=== PATIENT | female | born 1995 | race Caucasian/White ===

== ENCOUNTER → 2017-10-01 | Outpatient (CLI) | payer OTHER ==
[~2017-10-01] MED LIST: IOHEXOL 300 MG/ML 75 ML VIAL. IV ONE
--- NOTE | 2017-10-01 15:26 | RAD ---
EXAM: CT head without contrast. HISTORY: Right upper extremity weakness. TECHNIQUE: Computed tomography of the head was performed without intravenous contrast. COMPARISON: None. FINDINGS: There is no intracranial hemorrhage. Uriarte-white differentiation is preserved. The ventricles are normal in size and position. The visualized paranasal sinuses appear clear. The orbits are unremarkable. A left eyebrow piercing is noted. The temporal bones are unremarkable. The calvarium reveals no suspicious lesions. IMPRESSION: 1. No acute intracranial findings. *One or more of the following individualized dose reduction techniques were utilized for this examination: 1. Automated exposure control. 2. Adjustment of the mA and/or kV according to patient size. 3. Use of iterative reconstruction technique.
--- NOTE | 2017-10-01 16:44 | RAD ---
EXAM: Right upper extremity venous Doppler. HISTORY: Right upper renal mass and weakness. History of pulmonary embolism COMPARISON: None. FINDINGS: Grayscale and Doppler analysis of the right upper extremity deep venous system was performed with graded compression and augmentation. The internal jugular, subclavian, axillary, brachial, basilic, cephalic, radial and ulnar veins were assessed. There is no evidence of deep venous thrombosis. IMPRESSION: 1. No evidence of deep venous thrombosis.
--- NOTE | 2017-10-01 17:28 | RAD ---
CTA of the chest with and without contrast Clinical indications: Elevated d-dimer. History of pulmonary embolism. Right arm numbness and weakness. Comparison: No previous chest CT available. Technique: Noncontrast axial localizer was performed. After IV infusion of 75 cc of Omnipaque 300, helical CT scanning of the chest was performed using the CT pulmonary embolism protocol. A coronal MIP reconstruction was generated. PQRS Compliance Statement: One or more of the following individualized dose reduction techniques were utilized for this examination: 1. Automated exposure control 2. Adjustment of the mA and/or kV according to patient size 3. Use of iterative reconstruction technique Findings: No pulmonary embolism is evident. No focal aneurysmal dilatation or dissection of the thoracic aorta is seen. The heart size is normal and no pericardial effusion is seen. No enlarged thoracic lymphadenopathy is evident. No lung infiltrate or lung mass is seen. No pleural effusion or pneumothorax is evident. The proximal bronchial tree is patent. No osteolytic process is seen. No adrenal mass is evident. IMPRESSION: No pulmonary embolism. No acute lung infiltrate.
== END | disposition home or self-care (01) ==
LOC: CT 15:08
PROVIDERS: ATTEND Physician Assistant
DX: I26.99 Other pulmonary embolism without acute cor pulmonale (principal); M79.601 Pain in right arm; R20.2 Paresthesia of skin; R53.1 Weakness; Z86.711 Personal history of pulmonary embolism
CPT/HCPCS: 70450; 71275; 93971; Q9967

== ENCOUNTER 2019-06-05 17:01 | Emergency (ER) | payer OTHER ==
[~2019-06-05] VITALS: Ht 167.6 cm; Wt 94.4 kg
--- NOTE | 2019-06-05 17:25 | ED.ADGEN ---
Past History Past Medical History: Asthma, Other Additional Past Medical Histor: nerve pain from carpal tunnel syndrome; chronic back pain Past Surgical History: No Surgical History Alcohol Use: None Drug Use: None Adult General Chief Complaint Chief Complaint Back pain HPI HPI Patient is a 24-year-old female who presents with diffuse lower back pain 2 days. Patient reports history of chronic low back pain and states she was stretching or bending over yesterday when she felt a sharp pulling pain radiating to her left leg. Patient has taken ibuprofen with limited relief. Denies extremity weakness loss of sensation. No loss of bowel or bladder function. No other acute symptoms or complaints. [] Review of Systems Review of Systems Review symptoms as per history of present illness. All other review symptoms are negative [] All other systems were reviewed and found to be within normal limits, except as documented in this note. Allergies Allergies Allergies Coded Allergies Type Severity Reaction Last Updated Verified No Known Drug Allergies 06/05/19 No Physical Exam Physical Exam Constitutional: Well developed, well nourished, no acute distress, non-toxic appearance. [] HENT: Normocephalic, atraumatic, bilateral external ears normal, oropharynx moist, no oral exudates, nose normal. [] Eyes: PERRLA, EOMI, conjunctiva normal, no discharge. [] Neck: Normal range of motion, no tenderness, supple, no stridor. [] Psychologic: Affect normal, judgement normal, mood normal. [] Current Patient Data Vital Signs Vital Signs Date Time Temp Pulse Resp B/P (MAP) Pulse Ox O2 Delivery O2 Flow Rate FiO2 06/05/19 17:09 98.5 72 18 100 Room Air EKG EKG [] Radiology/Procedures Radiology/Procedures [] Course & Med Decision Making Course & Med Decision Making Pertinent Labs and Imaging studies reviewed. (See chart for details) [Musculoskeletal back pain without neurologic deficit. Recommendations are supportive care with PCP follow-up.] Final Impression Final Impression [#1 acute lumbago] Theresa Disclaimer Dragon Disclaimer This electronic medical record was generated, in whole or in part, using a voice recognition dictation system. JOSIAS CARIAS DO Jun 05, 2019 17:25
[2019-06-05] MEDS ORDERED: CYCL-331 PO (17:26)
[2019-06-05] MEDS ORDERED: HYDR-3165 PO (17:26)
[2019-06-05 17:32] VITALS: BP 119/78
== END 2019-06-05 17:33 | disposition home or self-care (01) ==
LOC: ER 17:01
DX: G89.29 Other chronic pain (principal); M54.5 Low back pain; J45.909 Unspecified asthma, uncomplicated
CPT/HCPCS: 99283

== ENCOUNTER → 2019-09-11 | Outpatient (CLI) | payer OTHER ==
[~2019-09-11] MED LIST changes: +CYCL-331 PO; +HYDR-3165 PO; -IOHEXOL 300 MG/ML 75 ML VIAL. IV ONE
--- NOTE | 2019-09-11 13:30 | RAD ---
EXAM: CT Abdomen and Pelvis without IV contrast CLINICAL HISTORY: Right-sided abdominal and flank pain. COMPARISON: none TECHNIQUE: Helical CT of the abdomen and pelvis was performed without the administration of IV contrast. Axial, coronal and sagittal reformatted images were generated. ---PQRS compliance statement - One or more of the following individualized dose reduction techniques were utilized for this study: 1. Automated exposure control 2. Adjustment of the mA and/or kV according to patient size 3. Use of iterative reconstruction technique--- FINDINGS: Lack of intravenous contrast limits evaluation of solid organs, vasculature, and lymph nodes. Lower chest: Lung bases are clear. Abdomen and pelvis: Liver and biliary system: Liver is top normal in size measuring 17.9 cm in length. Gallbladder is normal. No biliary ductal dilatation. Spleen: Unremarkable Pancreas: Unremarkable Adrenal glands: Unremarkable Kidneys: No renal tract calculus. No focal renal lesion. No hydronephrosis. No hydroureter. Lymph nodes/retroperitoneum: A few mildly prominent mesenteric and right lower quadrant/pericecal lymph nodes are seen. No abdominal or pelvic lymphadenopathy by size criteria. Vessels: Aorta is normal in caliber. Bowel/Peritoneal cavity: Moderate colonic stool content is seen. Appendix is normal. No abdominal or pelvic ascites. IUD is seen within the uterus. Abdominal wall: Small fat-containing periumbilical hernia is seen. Bladder: Bladder is unremarkable. Bones: Sclerotic focus left pubic symphysis. IMPRESSION: 1. No renal tract calculus. 2. IUD is seen within the uterus. 3. Appendix is normal. 4. A few mildly prominent right lower quadrant lymph nodes are seen, nonspecific but may be seen with mesenteric adenitis. However no lymphadenopathy by size criteria. Electronically signed by: Lenny Miles MD (09/11/2019 1:27 PM) [id number]
== END | disposition home or self-care (01) ==
LOC: CT 09:21
PROVIDERS: ATTEND Family Medicine
DX: K42.9 Umbilical hernia without obstruction or gangrene (principal); R85.0 Abnormal level of enzymes in specimens from digestive organs and abdominal cavity
CPT/HCPCS: 74176

== ENCOUNTER 2020-04-14 13:01 | Emergency (ER) | payer OTHER ==
[~2020-04-14] VITALS: Ht 167.6 cm; Wt 94.4 kg
[2020-04-14 13:05] VITALS: BP 119/78
--- NOTE | 2020-04-14 13:23 | PHYS DOC ---
Past History Past Medical History: Asthma, Other Additional Past Medical Histor: nerve pain from carpal tunnel syndrome; chronic back pain Past Surgical History: No Surgical History Alcohol Use: None Drug Use: None General Adult EDM: Chief Complaint: ABDOMINAL PAIN HPI: HPI: Patient is a 25-year-old female presents with 2 weeks of lower abdominal cramping stabbing abdominal pain. Pain is worse with palpation and movement. Pain is mild at rest and moderate movement and activity. Patient states she has seen a doctor and had an x-ray and her IUD is upside down. Patient denies any nausea vomiting fever dysuria but states that she has a little bit of blood when she wipes. Review of Systems: Review of Systems: Constitutional: Denies fever or chills Eyes: Denies change in visual acuity HENT: Denies nasal congestion or sore throat Respiratory: Denies cough or shortness of breath Cardiovascular: Denies chest pain or edema GI: Complains of abdominal pain but no, nausea, vomiting, bloody stools or diarrhea : Denies dysuria Musculoskeletal: Denies back pain or joint pain Integument: Denies rash Neurologic: Denies headache, focal weakness or sensory changes Endocrine: Denies polyuria or polydipsia Lymphatic: Denies swollen glands Psychiatric: Denies depression or anxiety Heart Score: Risk Factors: Risk Factors: DM, Current or recent (<one month) smoker, HTN, HLP, family history of CAD, obesity. Risk Scores: Score 0 - 3: 2.5% MACE over next 6 weeks - Discharge Home Score 4 - 6: 20.3% MACE over next 6 weeks - Admit for Clinical Observation Score 7 - 10: 72.7% MACE over next 6 weeks - Early Invasive Strategies Allergies: Allergies: Allergies Coded Allergies Type Severity Reaction Last Updated Verified No Known Drug Allergies 06/05/19 No Physical Exam: PE: Constitutional: Well developed, well nourished, no acute distress, non-toxic appearance. [] HENT: Normocephalic, atraumatic, bilateral external ears normal, no trismus, nose normal. [] Eyes: PERRLA, EOMI, conjunctiva normal, no discharge. [] Neck: Normal range of motion, no tenderness, supple, no stridor. [] Cardiovascular:Heart rate regular rhythm, peripheral pulses intact cap refill is brisk Lungs & Thorax: Bilateral breath sounds clear, no respiratory distress Abdomen: Soft with mild lower abdominal tenderness without guarding or rebound no pulsatile masses Skin: Warm, dry, no erythema, no rash. [] Back: No tenderness, no CVA tenderness. [] Extremities: No tenderness, no cyanosis, no clubbing, ROM intact, no edema. [] Neurologic: Alert and oriented X 3, normal motor function, normal sensory function, no focal deficits noted. [] Psychologic: Affect normal, judgement normal, mood normal. [] Current Patient Data: Labs: Laboratory Tests Test 04/14/20 14:20 04/14/20 14:42 Urine Collection Type Unknown Urine Color Yellow Urine Clarity Cloudy Urine pH 5.5 Urine Specific [place] 1.020 Urine Protein Neg Urine Glucose (UA) Neg mg/dL Urine Ketones (Stick) Neg mg/dL Urine Blood Trace Urine Nitrite Neg Urine Bilirubin Neg Urine Urobilinogen Dipstick 0.2 mg/dL Urine Leukocyte Esterase Small Urine RBC 3-5 /HPF Urine WBC 20-40 /HPF Urine Squamous Epithelial Cells Few /LPF Urine Bacteria Mod /HPF Urine Test Negative White Blood Count 6.5 x10^3/uL Red Blood Count 4.26 x10^6/uL Hemoglobin 13.7 g/dL Hematocrit 40.7 % Mean Corpuscular Volume 96 fL Mean Corpuscular Hemoglobin 32 pg Mean Corpuscular Hemoglobin Concent 34 g/dL Red Cell Distribution Width 13.7 % Platelet Count 223 x10^3/uL Neutrophils (%) (Auto) 44 % Lymphocytes (%) (Auto) 46 % Monocytes (%) (Auto) 6 % Eosinophils (%) (Auto) 3 % Basophils (%) (Auto) 1 % Neutrophils # (Auto) 2.8 x10^3uL Lymphocytes # (Auto) 3.0 x10^3/uL Monocytes # (Auto) 0.4 x10^3/uL Eosinophils # (Auto) 0.2 x10^3/uL Basophils # (Auto) 0.1 x10^3/uL Sodium Level 141 mmol/L Potassium Level 4.2 mmol/L Chloride Level 106 mmol/L Carbon Dioxide Level 27 mmol/L Anion Gap 8 Blood Urea Nitrogen 10 mg/dL Creatinine 1.0 mg/dL Estimated GFR (Cockcroft-Gault) 67.0 Glucose Level 93 mg/dL Calcium Level 9.0 mg/dL Current Medications Medications (Trade) Dose Ordered Sig/Katy Route PRN Reason Start Time Stop Time Status Last Admin Dose Admin Ketorolac Tromethamine (Toradol 15mg Vial) 15 mg 1X ONCE IVP 04/14/20 13:30 04/14/20 13:31 DC 04/14/20 14:41 EKG: EKG: [] Radiology/Procedures: Radiology/Procedures: [][place] [address] IMAGING REPORT Signed PATIENT: MYRANDA WEINERCCOUNT: [id number] : 1995 LOCATION: ER AGE: 25 SEX: F EXAM STATUS: REG ER ORD. PHYSICIAN: ZOHRA PALACIOS MD REASON: pelvic pain PROCEDURE: US PELVIS W/TV Pelvic ultrasound, transabdominal and endovaginal approach. INDICATION: Pelvic pain. Patient believes her IUDs out of place per technologist report. FINDINGS: Reported LMP is 04/10/2020. Uterus measures 8.5 x 5.3 x 4.3 cm. Endometrial stripe measures 4 mm. An IUD is present in the endometrial cavity in apparent satisfactory position. The right ovary measures 3.2 x 2.2 x 2.3 cm and demonstrates normal blood flow. The left ovary measures 3.1 x 1.7 x 2.1 cm and also demonstrates normal blood flow. No pelvic free fluid or adnexal mass. Cervix is unremarkable. IMPRESSION: Normal pelvic ultrasound with an IUD in place. Electronically signed by: Luis Mackey MD (04/14/2020 2:33 PM) [facility] [place] DICTATED AND SIGNED BY: LUIS MACKEY MD DATE: 04/14/20 1430 CC: ZOHRA PALACIOS MD; OLINDA AVNIA MD ~ Course & Med Decision Making: Course & Med Decision Making Pertinent Labs and Imaging studies reviewed. (See chart for details) [] I reviewed patient's x-ray which shows inverted T for her IUD. I informed the patient we do not remove IUDs in the emergency room. 25-year-old female presents with 2 weeks of lower abdominal pain. Work-up reveals a UTI. Patient will also be covered for gonorrhea and chlamydia with Rocephin and Zithromax. Patient will go home on antibiotics for UTI. Return precautions given ultrasound is reassuring for placement of the IUD. hCG checked and is negative Theresa Disclaimer: Theresa Disclaimer: This electronic medical record was generated, in whole or in part, using a voice recognition dictation system. Departure Departure: Impression: Primary Impression: Pelvic pain Additional Impression: UTI (urinary tract infection) Disposition: HOME/RESIDENCE PRIOR TO ADM Condition: STABLE Referrals: OLINDA AVINA MD (PCP) 2-3 DAYS Patient Instructions: Pelvic Pain, Female, Urinary Tract Infection Additional Instructions: EMERGENCY DEPARTMENT GENERAL DISCHARGE INSTRUCTIONS THANK YOU for coming to [facility] Emergency Department (ED) today and trusting us with your care. We trust that you had a positive experience in our Emergency Department. If you wish to speak to the department Management you can contact the supervisor porcelain department at . YOUR FOLLOW UP INSTRUCTIONS ARE FOLLOWS: Do you have a private doctor? If you do not have a private doctor, please ask for a resource list of physicians or clinics that may be able to assist you with follow up care. The Emergency Physician has interpreted your x-rays. The X-ray specialist will also review them. If there is a change in the findings you will be notified in 48 hours when at all possible. A lab test or lab culture may have been done, your results will be reviewed and you will be notified if you need a change in treatment. ADDITIONAL INSTRUCTIONS AND INFORMATION Your care today has been supervised by a physician who is specially trained in emergency care. Many problems require more than one evaluation for a complete diagnosis and treatment. We recommend that you schedule your follow up appointment as recommended to en sure complete treatment of your illness or injury. If you are unable to obtain follow up care and continue to have a problem, or if your condition worsens we recommend that you return to the ED. We are not able to safely determine your condition over the phone nor are we able to give sound medical advice over the phone. For these safety reasons, if you call for medical advice we will ask you to come to the ED for further evaluation If you have any questions regarding these discharge instructions please call the ED at . SAFETY INFORMATION In the interest of safety, wellness, and injury prevention; we encourage you to wear your seatbelt, if you smoke; quit smoking, and we encourage your family to use protective helmet for bicycling and other sporting events that present an increased risk for head injury. IF YOUR SYMPTOMS WORSEN OR NEW SYMPTOMS DEVELOP, OR YOU HAVE CONCERNS ABOUT YOUR CONDITION; OR IF YOUR CONDITION WORSENS WHILE YOU ARE WAITING FOR YOUR FOLLOW UP APPOINTMENT; EITHER CONTACT YOUR PRIMARY CARE DOCTOR, THE PHYSICIAN WHOSE NAME AND NUMBER YOU WERE GIVEN, OR RETURN TO THE ED IMMEDIATELY. Scripts Ibuprofen (Ibu) 600 Mg Tablet 1 TAB PO Q6-8HRS for pain, fever, inflammation for 6 Days, #24 TAB 0 Refills Prov: ZOHRA PALACIOS MD 04/14/20 Cephalexin (KEFLEX) 500 Mg Capsule 500 MG PO Q6HRS for UTI for 7 Days, #28 CAP Prov: ZOHRA PALACIOS MD 04/14/20 Justification of Admission: Justification of Admission: Justification of Admission Dx: N/A ZOHRA PALACIOS MD Apr 14, 2020 13:23
[2020-04-14] MEDS ORDERED: KETOROLAC 15 MG/ML VIAL. IVP ONE (13:30)
[2020-04-14 14:34] LABS: U PREG PATIENT NEGATIVE (NEG)
[2020-04-14 14:36] LABS: BILIRUBIN,URINE NEG (NEG); CLARITY,URINE CLOUDY; COLOR,URINE YELLOW; GLUCOSE,URINE NEG (NEG); NITRITE,URINE NEG (NEG); UROBILINOGEN,URINE 0.2 mg/dL (0.2 mg/dL); WBC,URINE 20-40 /HPF (0-4)
--- NOTE | 2020-04-14 14:36 | RAD ---
Pelvic ultrasound, transabdominal and endovaginal approach. INDICATION: Pelvic pain. Patient believes her IUDs out of place per technologist report. FINDINGS: Reported LMP is 04/10/2020. Uterus measures 8.5 x 5.3 x 4.3 cm. Endometrial stripe measures 4 mm. An IUD is present in the endometrial cavity in apparent satisfactory position. The right ovary measures 3.2 x 2.2 x 2.3 cm and demonstrates normal blood flow. The left ovary measures 3.1 x 1.7 x 2.1 cm and also demonstrates normal blood flow. No pelvic free fluid or adnexal mass. Cervix is unremarkable. IMPRESSION: Normal pelvic ultrasound with an IUD in place. Electronically signed by: Jessie Mackey MD (04/14/2020 2:33 PM) [facility] [place]
[2020-04-14 14:37] LABS: BACTERIA,URINE MOD /HPF (0-FEW); SQUAMOUS EPITHELIAL CELL,UR FEW /LPF
[2020-04-14 14:56] LABS: BASO # 0.1 x10^3/uL (0.0-0.2); BASO % 1 % (0-3); EOS # 0.2 x10^3/uL (0.0-0.7); EOS % 3 % (0-3); HEMATOCRIT 40.7 % (36.0-47.0); HEMOGLOBIN 13.7 g/dL (12.0-15.5); LYMPH % 46 % (24-48); MEAN CORPUSCULAR HEMOGLOBIN 32 pg (25-35); MEAN CORPUSCULAR HGB CONC 34 g/dL (31-37); MEAN CORPUSCULAR VOLUME 96 fL (79-100); MONO # 0.4 x10^3/uL (0.0-1.1); MONO % 6 % (0-9); NEUT # 2.8 x10^3uL (1.8-7.7); NEUT % 44 % (31-73); PLATELET COUNT 223 x10^3/uL (140-400); RED BLOOD COUNT 4.26 x10^6/uL (3.50-5.40); RED CELL DISTRIBUTION WIDTH 13.7 % (11.5-14.5); WHITE BLOOD COUNT 6.5 x10^3/uL (4.0-11.0)
[2020-04-14 15:05] LABS: POTASSIUM 4.2 mmol/L (3.5-5.1)
[2020-04-14] MEDS ORDERED: CEPH-264 PO (15:13)
[2020-04-14] MEDS ORDERED: IBUP-571 PO (15:13)
[2020-04-14] MEDS ORDERED: AZITHROMYCIN 250 MG TABLET. PO ONE (15:15)
[2020-04-14] MEDS ORDERED: ONDANSETRON PF 4 MG/2 ML VIAL. IVP ONE (15:15)
[2020-04-14] MEDS ORDERED: IV NORMAL SALINE 50ML 50 ML ONE (15:30)
[2020-04-14] MEDS ORDERED: cefTRIAXone SODIUM 1 GM VIAL ONE (15:31)
== END 2020-04-14 16:01 | disposition home or self-care (01) ==
LOC: ER 13:01
DX: N39.0 Urinary tract infection, site not specified (principal); R10.2 Pelvic and perineal pain; J45.909 Unspecified asthma, uncomplicated; G89.29 Other chronic pain
CPT/HCPCS: 36415; 76830; 76856; 80048; 81001; 81025; 85025; 87086; 87491; 87591; 96365; 96375; 99284; J0456; J0696; J1885; J2405

== ENCOUNTER 2021-03-28 12:32 | Emergency (ER) | payer OTHER ==
[~2021-03-28] VITALS: Ht 167.6 cm; Wt 107.3 kg
[~2021-03-28 12:32] MED LIST changes: +CEPH-264 PO; +IBUP-571 PO
--- NOTE | 2021-03-28 13:18 | PHYS DOC ---
Past History Past Medical History: Asthma, Other Additional Past Medical Histor: nerve pain from carpal tunnel syndrome; chronic back pain, PE (RONA MEIER APRN) Past Surgical History: No Surgical History (RONA MEIER APRN) Additional Smoking Information: vapes Alcohol Use: None Drug Use: None (RONA MEIER APRN) Adult General Chief Complaint Chief Complaint: LOWER EXT PAIN HPI HPI Patient is a 26-year-old female presents emergency department chief complaint of left lower leg discomfort for the past 2 to 3 days. Patient reports a history of pulmonary embolus with her previous 3 pregnancies, states she is 31 weeks 2 days . Can feel her baby move and is not worried about her . Denies vaginal discharge or vaginal bleeding. Is 4 para 3, currently treated with Lovenox prophylaxis related to previous pulmonary emboli. Denies chest pain, chest palpitation or shortness of breath, fever chills, nausea, vomiting, diarrhea. Patient denies headaches, dizziness, syncopal episodes, or visual disturbances. Patient reports a 3-4 out of 10 And lower leg discomfort. Patient reports she called her [employer] who told her to come to the emergency department and get a sonogram to rule out a DVT. Denies other physical compla ints or physical concerns. (RONA MEIER APRN) Review of Systems Review of Systems 14 body systems of review of systems have been reviewed. See HPI for pertinent positives and negative responses, otherwise all other systems are negative, nonpertinent or noncontributory. Constitutional: Negative except as outlined in HPI above. Skin: Negative except as outlined in HPI above. Eyes: Negative except as outlined in HPI above. HENT: Negative except as outlined in HPI above. Respiratory: Negative except as outlined in HPI above. Cardiovascular: Negative except as outlined in HPI above. GI: Negative except as outlined in HPI above. : Negative except as outlined in HPI above. Musculoskeletal: Negative except as outlined in HPI above. Integument: Negative except as outlined in HPI above. Neurologic: Negative except as outlined in HPI above. Endocrine: Negative except as outlined in HPI above. Lymphatic: Negative except as outlined in HPI above. Psychiatric: Negative except as outlined in HPI above. (RONA MEIER APRN) Allergies Allergies Allergies Coded Allergies Type Severity Reaction Last Updated Verified No Known Drug Allergies 06/05/19 No (RONA MEIER APRN) Physical Exam Physical Exam Constitutional: Well developed, well nourished, no acute distress, non-toxic appearance. 26-year-old female in no apparent distress. HENT: Normocephalic, atraumatic. Eyes: Conjunctiva normal, no discharge. Neck: Normal range of motion, no stridor. Cardiovascular: No cyanosis appreciated, distal cap refill less than 2 seconds. Lungs & Thorax: Patient is in no respiratory distress, no audible adventitious lung sounds appreciated. Abdomen: Nontender, no abnormalities noted. Skin: Warm, dry, no erythema, no rash. Back: No tenderness, no deformities. Extremities: No tenderness, no cyanosis, no clubbing, ROM intact, no edema. Except for left lower extremity medial aspect just superior to the ankle mild pain to palpation without erythema swelling crepitus or deformity appreciated. Skin is intact. Full AROM/PROM of ankle and knee joint. 2+ dorsalis pedis/posterior tibial pulse, distal cap refill is less than 2 seconds. Neurologic: Alert and oriented X 3, normal motor function, normal sensory function, no focal deficits noted. Psychologic: Affect normal, judgement normal, mood normal. (RONA MEIER APRN) Current Patient Data Vital Signs Vital Signs Date Time Temp Pulse Resp B/P (MAP) Pulse Ox O2 Delivery O2 Flow Rate FiO2 03/28/21 12:43 99.2 88 20 126/84 99 Room Air (RONA MEIER APRN) EKG EKG [] (RONA MEIER APRN) Radiology/Procedures Radiology/Procedures [facility] [id number] : 1995 LOCATION: ER AGE: 26 SEX: F EXAM STATUS: REG ER ORD. PHYSICIAN: RONA MEIER APRN REASON: lower leg cramping, pain PROCEDURE: VENOUS LOWER EXTREMITY LEFT Left lower extremity venous ultrasound, : History: Left lower extremity cramping, 31 weeks Duplex evaluation including grayscale, color flow and spectral Doppler analysis was performed. The femoral and popliteal veins show no filling defects to suggest DVT. The visualized calf veins are unremarkable. IMPRESSION: There is no sonographic evidence of deep vein thrombosis in the left lower extremity Electronically signed by: Evaristo Liu MD (03/28/2021 1:36 PM) [facility] (RONA MEIER APRN) Heart Score C/O Chest Pain: No Risk Factors: Risk Factors: DM, Current or recent (<one month) smoker, HTN, HLP, family history of CAD, obesity. Risk Scores: Risk Factors: DM, Current or recent (<one month) smoker, HTN, HLP, family history of CAD, obesity. (RONA MEIER APRN) Course & Med Decision Making Course & Med Decision Making Pertinent Labs and Imaging studies reviewed. (See chart for details) 26-year-old female, vital signs reviewed, presents emergency department requesting a sonogram of her lower extremity to rule out a DVT. Physical examination nonconcerning for DVT however patient was sent by [employer] related to patient's history of pulmonary emboli, patient is currently treated for vascular emboli with Lovenox during her . Low likelihood of DVT however will order sonogram to rule out per [employer] request. heart tones equal 144. Patient vital signs within normal limits, no concerning signs for preeclampsia. Will order urinalysis assay, CBC, CMP. Offered patient pain medication for left lower leg discomfort, patient denies need and has refused pain medication offer. The patient's urine was not infected, sonogram of left lower extremity nonconcerning for DVT. Discussed findings with patient, strict follow-up with OB for ongoing symptoms, return to ER precautions or concerns, patient is amenable to ED discharge planning. Discussed with the patient all findings and diagnostic testing as well as the need to follow-up with their primary care provider for further evaluation and treatment or return to the ED if any new or worsening symptoms. Strict return precautions were also discussed at length, the patient voiced understanding and agreement with the discharge planning. The patient was nontoxic in appearance, in no apparent distress, and hemodynamically stable at the time of disposition. (RONA MEIER APRN) Dragon Disclaimer Dragon Disclaimer This electronic medical record was generated, in whole or in part, using a voice recognition dictation system. (RONA MEIER APRN) Attending Co-Sign The patient was seen and interviewed as well as examined at the bedside. The chart was reviewed. The case was discussed. Agree with the plan of care. (JOSIAS ESPINOZA DO) Departure Departure: Impression: Primary Impression: Leg pain, left Disposition: HOME / SELF CARE / HOMELESS Condition: GOOD Referrals: OLINDA AVINA MD (PCP) Additional Instructions: You were seen today in the emergency department for pain in your left lower leg, a sonogram study was done in the emergency department and is reassuring that there is no blood clot or deep vein thrombosis. Please follow-up with your primary care physician for ongoing symptoms, see your OB doctor soon. Thank you for visiting our Emergency Department. It was a pleasure taking care of you today in the emergency department and we appreciate you trusting us with your care. If any additional problems come up don't hesitate to return to visit us. Please follow up with your primary care provider so they can plan additional care if needed and know about the problem that you had. If symptoms worsen come back to the Emergency Department. Any concerning symptoms that start such as chest pain, shortness of air, weakness or numbness on one side of the body, running high fevers or any other concerning symptoms return to the ER. EMERGENCY DEPARTMENT GENERAL DISCHARGE INSTRUCTIONS Thank you for coming to [facility] (ED) today and trusting us with you care. We trust that you had a positivie experience in our Emergency Department. If you wish to speak to the department management, you may call the director at [phone]. YOUR FOLLOW UP INSTRUCTIONS ARE FOLLOWS: 1. Do you have a private Doctor? If you do not have a private doctor, please ask for a resource list of physicians or clinics that may be able to assist you with follow up care. 2. The Emergency Physician has interpreted your x-rays. The X-Ray specialist will also review them. If there is a change in the findings, you will be notified in 48 hours when at all possible. 3. A lab test or culture has been done, your results will be reviewed and you will be notified if you need a change in treatment. ADDITIONAL INSTRUCTIONS AND INFORMATION: 1. Your care today has been supervised by a physician who is specially trained in emergency care. Many problems require more than one evaluation for a complete diagnosis and treatment. We recommend that you schedule your follow up appointment as recommended to ensure complete treatment of you illness or injury. If you are unable to obtain follow up care and continue to have a problem, or if your condition worsens, we recommend that you return to the ED. 2. We are not able to safely determine your condition over the phone nor are we able to give sound medical advice over the phone. For these safety reasons, if you call for medical advice we will ask you to come to the ED for further evaluation. 3. If you have any questions regarding these discharge instructions please call the ED at [phone]. SAFETY INFORMATION: In the interest of safety, wellness, and injury prevention; we encourage you to wear your sealbelt, if you smoke; quite smoking, and we encourage family to use a protective helmet for bicycling and other sporting events that present an increased risk for head injury. IF YOUR SYMPTOMS WORSEN OR NEW SYMPTOMS DEVELOP, OR YOU HAVE CONCERNS ABOUT YOUR CONDITION; OR IF YOUR CONDITION WORSENS WHILE YOU ARE WAITING FOR YOUR FOLLOW UP APPOINTMENT; EITHER CONTACT YOUR PRIMARY CARE DOCTOR, THE PHYSICIAN WHOSE NAME AND NUMBER YOU WERE GIVEN, OR RETURN TO THE ED IMMEDIATELY. RONA MEIER APRN Mar 28, 2021 13:18 JOSIAS ESPINOZA DO Mar 29, 2021 11:14
[2021-03-28 13:34] LABS: BASO % 0 % (0-3); EOS # 0.2 x10^3/uL (0.0-0.7); EOS % 2 % (0-3); HEMATOCRIT 32.5 % (36.0-47.0); LYMPH % 21 % (24-48); MEAN CORPUSCULAR HEMOGLOBIN 32 pg (25-35); MEAN CORPUSCULAR HGB CONC 34 g/dL (31-37); MEAN CORPUSCULAR VOLUME 95 fL (79-100); MONO # 0.6 x10^3/uL (0.0-1.1); MONO % 6 % (0-9); NEUT # 6.7 x10^3uL (1.8-7.7); NEUT % 71 % (31-73); PLATELET COUNT 192 x10^3/uL (140-400); RED BLOOD COUNT 3.43 x10^6/uL (3.50-5.40); RED CELL DISTRIBUTION WIDTH 14.7 % (11.5-14.5); WHITE BLOOD COUNT 9.5 x10^3/uL (4.0-11.0)
--- NOTE | 2021-03-28 13:39 | RAD ---
Left lower extremity venous ultrasound, : History: Left lower extremity cramping, 31 weeks Duplex evaluation including grayscale, color flow and spectral Doppler analysis was performed. The femoral and popliteal veins show no filling defects to suggest DVT. The visualized calf veins are u nremarkable. IMPRESSION: There is no sonographic evidence of deep vein thrombosis in the left lower extremity Electronically signed by: Evaristo Liu MD (03/28/2021 1:36 PM) [facility]
[2021-03-28 13:41] LABS: CALCIUM 8.2 mg/dL (8.5-10.1); CREATININE 0.5 mg/dL (0.6-1.0); POTASSIUM 3.4 mmol/L (3.5-5.1)
[2021-03-28 13:46] LABS: ALBUMIN 2.4 g/dL (3.4-5.0); ALBUMIN/GLOBULIN RATIO 0.6 (1.0-1.7); TOTAL BILIRUBIN 0.2 mg/dL (0.2-1.0); TOTAL PROTEIN 6.2 g/dL (6.4-8.2)
[2021-03-28 14:04] LABS: BILIRUBIN,URINE NEG (NEG); CLARITY,URINE HAZY; COLOR,URINE YELLOW; GLUCOSE,URINE NEG (NEG); NITRITE,URINE NEG (NEG); UROBILINOGEN,URINE 0.2 mg/dL (0.2 mg/dL)
[2021-03-28 14:06] LABS: BACTERIA,URINE MOD /HPF (0-FEW); RBC,URINE 0 /HPF (0-2); SQUAMOUS EPITHELIAL CELL,UR MOD /LPF
[2021-03-28 14:20] VITALS: BP 119/74
== END 2021-03-28 14:48 | disposition home or self-care (01) ==
LOC: ER 12:32
DX: O99.891 Other specified diseases and conditions complicating pregnancy (principal); M79.662 Pain in left lower leg; O99.513 Diseases of the respiratory system complicating pregnancy, third trimester; J45.909 Unspecified asthma, uncomplicated; Z3A.31 31 weeks gestation of pregnancy
CPT/HCPCS: 36415; 80053; 81001; 85025; 87086; 93971; 99284